=== PATIENT | female | born 1990 | race Caucasian/White ===

== ENCOUNTER 2016-06-07 14:18 | Emergency (ER) | payer OTHER ==
[~2016-06-07] VITALS: Ht 162.6 cm; Wt 65.0 kg
[2016-06-07 14:22] VITALS: TEMP 36.7; Ht 162.6 cm; Wt 65.0 kg
[2016-06-07 15:46] LABS: BASO % 0.2 %; BASO ABS # 0.02 K/uL (0-0.2); COMPLETE YES; EOS % 0.9 %; HEMATOCRIT 41.2 % (37-47); IG% 0.4 %; LYMPH % 17.5 %; LYMPH ABS # 1.95 K/uL (1.2-3.4); MEAN CELL VOLUME 88.6 fL (80-100); MEAN CORPUSCULAR HEMOGLOBIN 30.5 pg (25-34); MEAN CORPUSCULAR HGB CONC 34.5 g/dl (32-36); MEAN PLATELET VOLUME 10.1 fL (7.4-10.4); PLATELET COUNT 268 K/uL (130-400); RED BLOOD COUNT 4.65 M/uL (4.2-5.4); WHITE BLOOD COUNT 11.12 K/uL (4.8-10.8)
[2016-06-07 16:12] LABS: BUN/CREATININE RATIO 24.8 (10-20); CALCIUM 9.3 mg/dl (8.5-10.1); CREATININE 0.79 mg/dl (0.60-1.20); POTASSIUM 3.9 mmol/L (3.5-5.1)
[2016-06-07 16:22] LABS: THYROID STIMULATING HORMONE 1.37 uIu/ml (0.300-4.500)
[2016-06-07 16:50] LABS: BENZODIAZEPINE, URINE NEG (NEG); COCAINE,URINE NEG (NEG); PHENCYCLIDINE, URINE NEG (NEG)
[2016-06-07 17:06] LABS: URINE APPEARANCE CLEAR (CLEAR); URINE BILIRUBIN NEG (NEG); URINE COLOR YELLOW; URINE NITRITE NEG (NEG); URINE PH 6.5 (4.5-7.5); URINE SPECIFIC GRAVITY 1.017 (1.000-1.030); UROBILINOGEN NEG (NEG); ZZUR CULT IF INDIC CLEAN CATCH NO
[2016-06-07] MEDS ORDERED: ALPR0.25 PO (17:20)
[2016-06-07 17:22] LABS: MANUAL MICROSCOPIC REQUIRED? NO; REVIEW REQ? NO
[2016-06-07 17:30] VITALS: BP 121/78; PULSE 64; O2SAT 100
--- NOTE | 2016-06-07 17:58 | EMERGENCY ROOM VISIT NOTE ---
History Report prepared by Inga: Heidi Salazar Under the Supervision of: Dr. Temo Yarbrough M.D. First contact with patient: 14:57 Chief Complaint: ANXIETY Stated Complaint: ANXIETY/PANIC ATTACKS History of Present Illness The patient is a 25 year old female who presents to the Emergency Room with complaints of constant anxiety worsening over the last month. The patient states that she has had anxiety since she was a child and has tried taking medications including Wellbutrin, Celexa, Xanax, and Klonopin. She reports that she has been trying to manage her anxiety without medication for the last 5-7 years but over the last month her symptoms have worsened and she has been having panic attacks at work which she notes has never happened before. 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 The patient states that she has social anxiety and knows that there is no reason to feel this way but it randomly happens without any notable triggers. Today she reports that she came in because she needs something to help her manage her anxiety until she is able to see a psychiatrist and counselor. She denies suicidal and homicidal ideation, fever, cold, and . The patient states that she has support from her friends and family and notes that she has not had blood work recently. She notes that she may have had a sinus infection a few weeks ago. Source of History: patient Onset: 1 month Position: other (mental health) Quality: other (social anxiety) Timing: constant Modifying Factors (Worsening): other (work) Associated Symptoms: No fevers Note: During panic attacks she notes nervousness, shaking, and feeling like she will pass out. Review of Systems See HPI for pertinent positives & negatives. A total of 10 systems reviewed and were otherwise negative. Past Medical & Surgical Medical Problems: (1) Anorexia nervosa Family History No pertinent family history stated. Social History Smoking Status: Current Every Day Smoker Alcohol Use: occasionally Marital Status: single Housing Status: lives with family Occupation Status: employed Current/Historical Medications Scheduled PRN Alprazolam (Xanax), 0.25 MG PO Q12 PRN for Anxiety Allergies Coded Allergies: No Known Allergies (Unverified , 06/07/16) Physical Exam Vital Signs Date Time Temp Pulse Resp B/P Pulse Ox O2 Delivery O2 Flow Rate FiO2 06/07/16 17:30 64 15 121/78 100 Room Air 06/07/16 16:25 69 16 117/68 100 Room Air 06/07/16 14:22 36.7 115 16 138/82 96 Room Air Physical Exam Constitutional: Vital signs reviewed. Eyes: Pupils are equal round reactive to light. Conjunctiva are noninjected. ENT: Pharynx is clear without erythema or exudate. Mucous membranes are moist. Neck supple without meningeal signs. No thyromegaly. Respiratory: Clear to auscultation bilaterally. Breath sounds are equal bilaterally. Cardiovascular: Regular rate and rhythm. No rubs or gallops. GI: Soft, nondistended and nontender. Bowel sounds are present. Musculoskeletal: No peripheral edema. No lower extremity tenderness. Integumentary: No cyanosis. Neurological: The patient is awake and alert. No focal deficits. Psychiatric: Anxious. Medical Decision & Procedures Laboratory Results 06/07/16 15:33 Red Blood Count 4.65, Mean Corpuscular Volume 88.6, Mean Corpuscular Hemoglobin 30.5, Mean Corpuscular Hemoglobin Concent 34.5, Mean Platelet Volume 10.1, Neutrophils (%) (Auto) 75.0, Lymphocytes (%) (Auto) 17.5, Monocytes (%) (Auto) 6.0, Eosinophils (%) (Auto) 0.9, Basophils (%) (Auto) 0.2, Neutrophils # (Auto) 8.34, Lymphocytes # (Auto) 1.95, Monocytes # (Auto) 0.67, Eosinophils # (Auto) 0.10, Basophils # (Auto) 0.02 06/07/16 15:33 Test 06/07/16 15:33 06/07/16 15:42 White Blood Count 11.12 K/uL (4.8-10.8) Red Blood Count 4.65 M/uL (4.2-5.4) Hemoglobin 14.2 g/dL (12.0-16.0) Hematocrit 41.2 % (37-47) Mean Corpuscular Volume 88.6 fL (80-100) Mean Corpuscular Hemoglobin 30.5 pg (25-34) Mean Corpuscular Hemoglobin Concent 34.5 g/dl (32-36) Platelet Count 268 K/uL (130-400) Mean Platelet Volume 10.1 fL (7.4-10.4) Neutrophils (%) (Auto) 75.0 % Lymphocytes (%) (Auto) 17.5 % Monocytes (%) (Auto) 6.0 % Eosinophils (%) (Auto) 0.9 % Basophils (%) (Auto) 0.2 % Neutrophils # (Auto) 8.34 K/uL (1.4-6.5) Lymphocytes # (Auto) 1.95 K/uL (1.2-3.4) Monocytes # (Auto) 0.67 K/uL (0.11-0.59) Eosinophils # (Auto) 0.10 K/uL (0-0.5) Basophils # (Auto) 0.02 K/uL (0-0.2) RDW Standard Deviation 41.9 fL (36.4-46.3) RDW Coefficient of Variation 13.0 % (11.5-14.5) Immature Granulocyte % (Auto) 0.4 % Immature Granulocyte # (Auto) 0.04 K/uL (0.00-0.02) Anion Gap 9.0 mmol/L (3-11) Est Creatinine Clear Calc Drug Dose 94.9 ml/min Estimated GFR () 121.4 Estimated GFR (Non- 104.8 BUN/Creatinine Ratio 24.8 (10-20) Calcium Level 9.3 mg/dl (8.5-10.1) Total Bilirubin 0.5 mg/dl (0.2-1) Direct Bilirubin 0.1 mg/dl (0-0.2) Aspartate Amino Transf (AST/SGOT) 48 U/L (15-37) Alanine Aminotransferase (ALT/SGPT) 28 U/L (12-78) Alkaline Phosphatase 71 U/L (45-117) Total Protein 7.6 gm/dl (6.4-8.2) Albumin 4.0 gm/dl (3.4-5.0) Thyroid Stimulating Hormone (TSH) 1.370 uIu/ml (0.300-4.500) Free Thyroxine 1.06 ng/dl (0.80-1.60) Urine Color YELLOW Urine Appearance CLEAR (CLEAR) Urine pH 6.5 (4.5-7.5) Urine Specific [place] 1.017 (1.000-1.030) Urine Protein NEG (NEG) Urine Glucose (UA) NEG (NEG) Urine Ketones NEG (NEG) Urine Occult Blood NEG (NEG) Urine Nitrite NEG (NEG) Urine Bilirubin NEG (NEG) Urine Urobilinogen NEG (NEG) Urine Leukocyte Esterase NEG (NEG) Urine Test NEG (NEG) Urine Opiates Screen NEG (NEG) Urine Methadone, Qualitative NEG (NEG) Urine Barbiturates NEG (NEG) Urine Phencyclidine (PCP) Level NEG (NEG) Ur Amphetamine/Methamphetamine NEG (NEG) MDMA (Ecstasy) Screen NEG (NEG) Urine Benzodiazepines Screen NEG (NEG) Urine Cocaine Metabolite NEG (NEG) Urine Marijuana (THC) NEG (NEG) Laboratory results as reviewed by me. ECG Indication: other (Lightheaded with panic attack) Rate (beats per minute): 66 Rhythm: normal sinus Findings: no acute ischemic change, no ectopy ED Course 1457: The patient was evaluated in room A5. A complete history and physical exam was performed. 1717: I reevaluated the patient and discussed her test results. 1724: Upon reevaluation, the patient appeared to have improvement of her symptoms. I discussed mandie's findings with the patient. She verbalized agreement of the treatment plan. The patient was discharged home. Medical Decision This is a 25-year-old female who presents with anxiety. I did perform a limited focused review of portions of the patient's old chart on the electronic medical record. The patient has had no recent pertinent visits to this hospital. I did evaluate the patient as noted above. The patient is presenting with anxiety which has worsened over the past month. She describes her anxiety of social anxiety. She is getting panic attacks at work. She is requesting some medication to help her until she sees a psychiatrist and counselor. I did order and personally review the patient's chest x-ray as described above. I did order and review the patient's blood work as noted in the electronic medical record. I did order a urine tox screen which was negative. Urinalysis does not show any signs of infection. I did discuss the test results with the patient. She will follow up with her doctor, a psychiatrist and counselor. I did discuss benzodiazepines with her. She was given a short prescription for Xanax. She was discharged in good condition. [place] Drug Monitoring Program Drug Monitoring Findings: No match for the patient on PDMP. Impression Primary Impression: Anxiety Scribe Attestation The scribe's documentation has been prepared under my direct and personally reviewed by me in its entirety. I confirm that the note above accurately reflects all work, treatment, procedures, and medical decision making performed by me. Departure Information Dispostion Home / Self-Care Prescriptions Alprazolam (XANAX) 0.25 Mg Tab 0.25 MG PO Q12 Y for Anxiety, #20 TAB Prov: Temo Yarbrough M.D. 06/07/16 Referrals No Doctor, Assigned (PCP) Forms HOME CARE DOCUMENTATION FORM, IMPORTANT VISIT INFORMATION Patient Instructions Anxiety Body Response, My [facility] Additional Instructions You have been examined and treated today on an emergency basis only. This is not a substitute for, or an effort to provide, complete comprehensive medical care. It is impossible to recognize and treat all injuries or illnesses in a single emergency department visit. It is therefore important that you follow up closely with your physician, counselor and psychiatrist. Call as soon as possible for an appointment. Return for worsening symptoms or if you develop thoughts of hurting yourself or other people or any other concerning symptoms.
== END 2016-06-07 17:24 | disposition home or self-care (01) ==
LOC: C.EDB 14:20 → C.EDA 17:24
DX: F41.9 Anxiety disorder, unspecified (principal); F17.200 Nicotine dependence, unspecified, uncomplicated

== ENCOUNTER → 2016-10-06 | Outpatient (CLI) | payer OTHER ==
[~2016-10-06] MED LIST: ALPR0.25 PO; ATR10 PO; BUSPIRONE PO; ZLF/100 PO
== END | disposition home or self-care (01) ==
LOC: C.LAB 01:09
DX: Z02.83 Encounter for blood-alcohol and blood-drug test (principal)